=== PATIENT | male | born 1990 | race Hispanic/Latino ===

== ENCOUNTER 2018-04-05 12:53 | Emergency (ER) | payer BC ==
[2018-04-05 13:21] VITALS: BP 126/80; PULSE 80; RESP 18; TEMP 98.8; O2SAT 99
--- NOTE | 2018-04-05 14:09 | ED PDOC ---
HPI: CCC, URI, Sore Throat Time Seen by Provider: 04/05/18 13:36 Chief Complaint (Nursing): ENT Problem Chief Complaint (Provider): ENT Problem History Per: Patient History/Exam Limitations: no limitations Onset/Duration Of Symptoms: Days Additional Complaint(s): Patient is a 27 y/o male with no significant PMHx who presents to the ED for evaluation of an ulceration/lesion on the back of throat, onset two weeks ago. Patient states his throat hurt initially so he went to urgent care where he was given triamcinolone ointment one week ago. Since, the ulceration/lesion remains painless but appears unchanged without improvement. Patient was prompted to come to the ED today because his mother saw the ulceration/lesion and became concerned. Patient denies fever, chills, night sweats, sore throat, ear pain, nasal congestion, and cough. PCP: None Provided Past Medical History Reviewed: Historical Data, Nursing Documentation, Vital Signs Vital Signs: Last Vital Signs Temp 98.8 F 04/05/18 13:19 Pulse 80 04/05/18 13:19 Resp 18 04/05/18 13:19 BP 126/80 04/05/18 13:19 Pulse Ox 99 04/05/18 13:19 - Medical History PMH: No Chronic Diseases Denies: Diabetes, HIV (cold sores or herpes ), Hyperlipidemia - Surgical History Surgical History: No Surg Hx - Family History Family History: States: No Known Family Hx - Social History Current smoker - smoking cessation education provided: Yes (occasionally) Alcohol: Occasional - Home Medications Home Medications: Ambulatory Orders Medication Instructions Recorded Methylprednisolone [Medrol Dose 4 mg PO DAILY #21 mg 04/05/18 Pack (21 tabs)] Valacyclovir HCl [Valtrex] 1,000 mg PO TID 7 Days tablet 04/05/18 - Allergies Allergies/Adverse Reactions: Allergies Allergy/AdvReac Type Severity Reaction Status Date / Time No Known Allergies Allergy Verified 04/05/18 13:19 Review of Systems ROS Statement: Except As Marked, All Systems Reviewed And Found Negative Constitutional: Negative for: Fever, Chills, Sweats (night) ENT: Positive for: Other (Ulceration/Lesion on back of throat that is fairly painless). Negative for: Ear Pain, Nose Congestion, Throat Pain (sore) Respiratory: Negative for: Cough Physical Exam - Reviewed Nursing Documentation Reviewed: Yes Vital Signs Reviewed: Yes - Physical Exam Appears: Positive for: Well, No Acute Distress Head Exam: Positive for: ATRAUMATIC, NORMAL INSPECTION, NORMOCEPHALIC ENT: Positive for: Normal ENT Inspection, Pharynx Is (mildly erythematous with small ulceration on the right, anterior to tonsils). Negative for: Pharyngeal Erythema, Tonsillar Exudate, Tonsillar Swelling Lymphatic: Positive for: Normal Exam Neurologic/Psych: Positive for: Alert, Oriented - ECG O2 Sat by Pulse Oximetry: 99 (RA) Pulse Ox Interpretation: Normal Medical Decision Making Medical Decision Making: Time: [address] Ernandez, ENT outdoor recreation specialist, who recommended Medrol dose pack and antiviral followup in office this week. Scribe Attestation: Documented by Pedro Lam, acting as a scribe for Cristin BUENO. Provider Scribe Attestation: All medical record entries made by the Scribe were at my direction and personally dictated by me. I have reviewed the chart and agree that the record accurately reflects my personal performance of the history, physical exam, medical decision making, and the department course for this patient. I have also personally directed, reviewed, and agree with the discharge instructions and disposition. Disposition - Clinical Impression Clinical Impression: Throat ulcer - Patient ED Disposition Is Patient to be Admitted: No Counseled Patient/Family Regarding: Studies Performed, Diagnosis, Need For Followup, Rx Given - Disposition Referrals: Richard Ernandez MD [Staff Provider] - Diallo Batista MD [Staff Provider] - Disposition: Routine/Home Disposition Time: 14:07 Condition: STABLE Additional Instructions: F/u with Dr. Ernnadez (Ear, nose, throat physician) in 1 week for further evaluation of ulceration in the back of your throat as you may need a biopsy. Return to ER or see your primary care doctor if you develop fevers or worsening pain. If you have pain, use Tylenol or Ibuprofen as needed. Prescriptions: Methylprednisolone [Medrol Dose Pack (21 tabs)] 4 mg PO DAILY #21 mg Valacyclovir HCl [Valtrex] 1,000 mg PO TID 7 Days tablet Forms: [employer] (Telugu) Print Language: GEORGIAN
== END 2018-04-05 14:17 | disposition home or self-care (01) ==
LOC: H.ER 12:53
DX: J39.2 Other diseases of pharynx (principal)